=== PATIENT | female | born 1985 | race African-American/Black ===

== ENCOUNTER 2023-06-29 06:57 | Emergency (ER) | payer OTHER ==
[2023-06-29 07:04] VITALS: BMI 32.9
[2023-06-29 08:32] LABS: EPI CELLS 29 /uL (0-25.1); HYALINE CASTS 1 /uL (0-3.1); URINE APPEARANCE CLOUDY; URINE BACTERIA 8 /uL (0-1359); URINE BILIRUBIN NEGATIVE (NEGATIVE); URINE COLOR RED; URINE GLUCOSE (UA) NEGATIVE (NEGATIVE); URINE KETONE NEGATIVE (NEGATIVE); URINE LEUK ESTERASE 2+ (NEGATIVE); URINE NITRITE NEGATIVE (NEGATIVE); URINE PROTEIN 1+ (NEGATIVE); URINE UROBILINOGEN 0.2 mg/dL (0.2-1.0); URINE WBC 138 /uL (0-25.8)
[2023-06-29 08:44] LABS: URINE RBC 18081.5 /uL (0-23.9)
[2023-06-29 08:50] LABS: BASO % 0.5 % (0-2.0); EOS % 0.4 % (0-4.5); HEMATOCRIT 35.2 % (32.4-45.2); HEMOGLOBIN 11.7 GM/dL (10.7-15.3); LYMPH % 24.3 % (8-40); MCH 29.8 pg (25.7-33.7); MCHC 33.2 g/dl (32.0-36.0); MEAN CELL VOLUME 89.7 fl (80-96); MEAN PLT VOLUME 8.6 fl (7.5-11.1); MONO % 8.3 % (3.8-10.2); NEUT % 66.5 % (42.8-82.8); PLATELET COUNT 303 10^3/uL (134-434); RBC 3.92 M/mm3 (3.60-5.2); RDW 13.6 % (11.6-15.6)
[2023-06-29 09:14] LABS: POTASSIUM 3.8 mmol/L (3.5-5.1)
[2023-06-29 09:16] LABS: ALBUMIN 3.5 g/dl (3.4-5.0); BLOOD UREA NITROGEN 7.3 mg/dL (7-18)
[2023-06-29 09:19] LABS: CREATININE 0.8 mg/dL (0.55-1.3)
[2023-06-29 09:21] LABS: BILIRUBIN,TOTAL 0.3 mg/dL (0.2-1)
[2023-06-29] MEDS ORDERED: CEPHALEXIN MONOHYDRATE 500 MG CAPSULE (UD) PO ONE (09:23)
[2023-06-29] MEDS ORDERED: CEPHALEXIN MONOHYDRATE 500 MG CAPSULE (UD) ONE (10:12)
[2023-06-29 10:21] VITALS: BP 103/67; PULSE 74; RESP 16; TEMP 97.9
== END 2023-06-29 10:20 | disposition home or self-care (01) ==
LOC: JER 06:57
DX: N92.0 Excessive and frequent menstruation with regular cycle (principal); N93.9 Abnormal uterine and vaginal bleeding, unspecified
CPT/HCPCS: 36415; 80053; 81003; 84703; 85025; 86850; 86900; 86901; 87086; 99283-25